=== PATIENT | male | born 1935 | race Caucasian/White ===

== ENCOUNTER 2019-09-17 11:53 | Outpatient (CLI) | payer MEDICARE | END 2019-09-17 23:59 | disposition home or self-care (01) | LOC: CFH 11:53 | PROVIDERS: ATTEND Internal Medicine Gastroenterology | DX: K57.30 Diverticulosis of large intestine without perforation or abscess without bleeding (principal); N28.1 Cyst of kidney, acquired; J98.4 Other disorders of lung; I70.0 Atherosclerosis of aorta; N43.2 Other hydrocele | CPT/HCPCS: 74176 ==